=== PATIENT | female | born 1965 | race Caucasian/White ===

== ENCOUNTER 2025-04-16 08:48 | Day surgery (SDC) | payer OTHER, SELFPAY ==
[2025-04-14 16:20] VITALS: BMI 30.9
[2025-04-16 10:16] VITALS: BP 124/76; PULSE 71; RESP 16; O2SAT 100
[2025-04-16] MEDS: LACTATED RINGERS 1000ML 1,000 ML 50 ML IV (10:30)
--- NOTE | 2025-04-16 10:35 | EXP.HP ---
History of Present Illness *Admission Date: 04/16/25 *Reason for visit:: History of eosinophilic esophagitis with recurrent dysphagia, reflux and th *History of present illness: Mrs. Thomas is a 59-year-old female who is here for diagnostic/therapeutic upper endoscopy secondary to dysphagia, history of EOE, reflux, chronic cough and throat clearing. The examination is deemed medically necessary for EGD/upper endoscopy. The patient has been seen, interviewed and examined prior to the procedure by both myself and the anesthesia provider. [facility] Disclaimer: The information contained in this section may have been updated after the patient was seen, as this information can be updated by other users. Medical History Narrowing of airway Hiatal hernia Rotator cuff arthropathy of right shoulder Endometriosis Eosinophilic asthma Depression Anxiety Hyponatremia Brain injury Primary adrenal insufficiency Surgical History H/O laparoscopy Hx of breast augmentation H/O umbilical hernia repair History of appendectomy Family History Other Cancer, bladder, neck Emphysema/COPD Hypertension Melanoma PAD (peripheral artery disease) Social History Smoking Status: Never smoker alcohol intake: current alcohol intake frequency: a few times a month current occupational status: disabled Travel in the last 8 weeks?: None caffeine: Yes Have you lived/traveled outside [place] in past 30 days?: No Contact w/someone who lives/traveled outside US past 30 days?: No Exposure to someone with infectious disease in past 14 days?: No Do you have a fever (greater than 100.4 F or 38 C)?: No Have you tested positive for COVID-19?: No Exposed to someone with COVID-19 in past 14 days?: No Do you have a sore throat?: No Do you have a cough?: No Do you have any weakness?: No Are you experiencing any nausea/vomitting?: No Do you have any diarrhea?: No Are you experiencing any unusual bleeding?: No Do you have any muscle aches/pain?: No Do you have any abdominal pain?: No Are you experiencing loss of taste or smell?: No Review of Systems Review of Systems Review of systems (narrative): Negative *Cardiovascular Comments: Negative *Gastrointestinal Comments: Negative *Genitourinary Comments: Negative *Musculoskeletal Comments: Negative *Neurologic Comments: Negative Meds Home Medications and Allergies Home Medications ?Medication ?Instructions ?Recorded ?Confirmed ?Type alprazolam 0.25 mg tablet 0.25 mg PO DAILY 03/25/25 04/16/25 History alprazolam 1 mg tablet 1 mg PO HS 03/25/25 04/16/25 History azelastine 137 mcg (0.1 %) nasal 1 spray intranasal DAILY 03/25/25 04/16/25 History spray bupropion HCl 300 mg 24 hr tablet, 300 mg PO DAILY 03/25/25 04/16/25 History extended release calcium 600 mg (as 1 tab PO DAILY 03/25/25 04/16/25 History carbonate)-vitamin D3 20 mcg (800 unit) tablet (Caltrate with Vitamin D3) cetirizine 10 mg capsule (Zyrtec) 10 mg PO DAILY PRN allergies 03/25/25 04/16/25 History docosahexaenoic acid 200 mg 200 mg PO DAILY 03/25/25 04/16/25 History capsule (Algal [place]-3 DHA) donepezil 5 mg tablet 5 mg PO DAILY 03/25/25 04/16/25 History estradiol 0.01% (0.1 mg/gram) 0.1 applic vaginal DAILY 03/25/25 04/16/25 History vaginal cream estradiol 0.05 mg/24 hr semiweekly 1 patch transdermal .semiweekly 03/25/25 04/16/25 History transdermal patch famotidine 20 mg tablet 20 mg PO DAILY 03/25/25 04/16/25 History fludrocortisone 0.1 mg tablet 0.1 mg PO DAILY 03/25/25 04/16/25 History hydrocortisone 10 mg tablet 80 mg PO DAILY 03/25/25 04/16/25 History ipratropium bromide 42 mcg (0.06 1 spray intranasal DAILY 03/25/25 04/16/25 History %) nasal spray omeprazole 20 mg capsule,delayed 20 mg PO DAILY 03/25/25 04/16/25 History release progesterone micronized 100 mg 200 mg PO HS 03/25/25 04/16/25 History capsule valacyclovir 500 mg tablet 500 mg PO DAILY 03/25/25 04/16/25 History New Prescriptions to Start Prescriptions: Allergies Allergy/AdvReac Type Severity Reaction Status Date / Time diphenhydramine (From Allergy Verified 03/25/25 11:56 Benadryl) NSAIDS (Non-Steroidal Allergy Verified 03/25/25 11:56 Anti-Inflamma Tetracyclines Allergy Verified 03/25/25 11:56 Exam Data for Last 24 hours Vital signs and Labs for Last 24 Hours: Pulse Resp BP Pulse Ox O2 Del Method 71 16 124/76 100 Room Air 04/16/25 10:16 04/16/25 10:16 04/16/25 10:16 04/16/25 10:16 04/16/25 10:16 I & O for Last 24 hours: Intake & Output 04/13/25 04/14/25 04/15/25 04/16/25 23:59 23:59 23:59 23:59 Weight 180 lb *Routine HEENT Exam Head: Present normocephalic Eye: Present EOMI and PERRL ENT: Present mucous membranes moist *Routine Neck Exam Neck: Present supple *Routine Respiratory Exam Respiratory: Present CTA bilaterally *Routine Cardiovascular Exam Cardiovascular: Present RRR *Routine Abdominal Exam Abdominal: Present soft and normoactive bowel sounds; Absent tenderness *Routine Rectal Exam Rectal:: deferred *Routine Genitalia Exam Genitalia:: deferred *Routine Extremities Exam Extremities: Absent cyanosis, clubbing or edema *Routine Skin Exam Skin: Present warm; Absent rash *Routine Neurological Exam Neurological: Present alert and oriented X3 Assessment and Plan *Assessment and plan (1) Eosinophilic esophagitis: Status: Chronic Category: Medical Code(s): K20.0 - Eosinophilic esophagitis (2) Dysphagia: Status: Acute Category: Medical Code(s): R13.10 - Dysphagia, unspecified (3) Acid reflux: Status: Acute Category: Medical Code(s): K21.9 - Gastro-esophageal reflux disease without esophagitis (4) Bloating: Status: Acute Category: Medical Code(s): R14.0 - Abdominal distension (gaseous) (5) Throat clearing: Status: Acute Category: Medical Code(s): R09.89 - Other specified symptoms and signs involving the circulatory and respiratory systems (6) Chronic cough: Status: Acute Category: Medical Code(s): R05.3 - Chronic cough Plan A/P: 1. History of eosinophilic esophagitis now with recurrent dysphagia, reflux, bloating, throat clearing and chronic cough is the preprocedural diagnosis. The patient will be anesthetized/sedated using MAC sedation. The patient has been seen and examined. Cardiac and lung assessment prior to the examination is stable. Proceed with planned EGD.
--- NOTE | 2025-04-16 10:42 | EXP.ANES.CKL ---
[facility] Disclaimer: The information contained in this section may have been updated after the patient was seen, as this information can be updated by other users. Medical History Narrowing of airway Hiatal hernia Rotator cuff arthropathy of right shoulder Endometriosis Eosinophilic asthma Depression Anxiety Hyponatremia Brain injury Primary adrenal insufficiency Surgical History H/O laparoscopy Hx of breast augmentation H/O umbilical hernia repair History of appendectomy Family History Other Cancer, bladder, neck Emphysema/COPD Hypertension Melanoma PAD (peripheral artery disease) Social History Smoking Status: Never smoker alcohol intake: current alcohol intake frequency: a few times a month substance use type: denies use current occupational status: disabled Travel in the last 8 weeks?: None caffeine: Yes [facility] Anesthesia Checklist Patient Identification Patient Identification: Arm Band Structural Data Admitted From: Home Planned Operative Procedure/s: EGD Consent for Planned Operative Procedure(s) Verified: Yes Verified Documents: Surgical Consent and History and Physical NPO Status Verified Time NPO: 00:00 Additional verifications Anesthesia Reactions: No Airway Assessment Mallampati Score:: Class II C-Spine Mobility Assessed: Yes TMJ Mobility Assessed: Yes Dentition: Good Dentition Neurological Assessment Level of Consciousness: Awake, Alert and Appropriate Anesthesia Plan Anesthesia Risk discussed: Yes Anesthesia Plan: Verified ASA Class: III Anesthesia Type: MAC Preoperative Comments Pre-Operative Comments: Pt with [place]'s Disease. She states that after her last colonoscopy at she had an acute exacerbation of hyponatremia with her sodium dropping to 114. She states that she seen her japanese tutor yesterday who recommended a stress dose of steroids prior to her procedure. Will give 100 mg of Solu-Cortef prior to EGD.
--- NOTE | 2025-04-16 10:49 | P.PCN_ITS ---
[facility] Procedure Note Date: 04/16/25 Time: 11:03 Procedure Note:: Upper Endoscopy Procedure Report: Esophagogastroduodenoscopy with cold biopsies and TTS balloon dilation Endoscopost: Shan Tovar II, MD Referring Physician: Glenn Boland MD, [address] [place] [address] Date of Procedure: April 16, 2025 Equipment: Olympus GIF 190 standard upper endoscope Sedation: MAC sedation Indications: Mrs. Thomas is a 59-year-old female who is here for diagnostic/therapeutic upper endoscopy. The patient does have chronic GERD and a history of eosinophilic esophagitis. She also has eosinophilic asthma and does have a lot of food allergies and recurrent anaphylactic reactions. She has been on omeprazole and famotidine. The patient reports having foods that rapidly causes coughing every time she eats and she is constantly clearing her throat. She does have some bloating, fullness and early satiety. The patient does have a history of IBS constipation she has tried and failed laxatives including Colace, Dulcolax, MiraLAX and Benefiber. Her last endoscopy was with Dr. Bharat Galdamez in 2018 or 2018. Her last colonoscopy was with Kanchan Don in March 2023 and was reportedly normal. Procedure: Prior to the procedure, a history and physical exam was performed, and patient's medications and allergies were reviewed. The risks, benefits and alternatives of the sedation and procedure were discussed with the patient. All questions were answered and informed consent was obtained. The patient was brought to the procedure room. Patient identification and proposed procedure were verified by the physician and the nurse. The patient was placed in a left lateral decubitus position and the scope was passed under direct vision. Throughout the procedure, the patient's blood pressure, pulse, and oxygen saturations were monitored continuously. The upper GI endoscopy was accomplished without difficulty. The patient tolerated the procedure well. Findings: The scope was passed directly into the upper esophagus and advanced to the fourth portion of duodenum and proximal jejunum. Cold biopsy was taken times one of the proximal jejunum for disaccharidase assay. The proximal jejunum, post bulbar duodenum, ampulla and duodenal bulb were normal with normal mucosa and conniventes. The scope was withdrawn through a normal duodenal bulb and pylorus into the stomach. There was some mild linear gastropathy of the antrum. The body and fundus of the stomach were normal. Upon retroflexion there was a 2 to 3 cm sliding hiatal hernia. The scope was then withdrawn into the esophagus. There was no Schatzki's ring or reflux esophagitis. There was no corrugation, furrowing, exudate, striation or inlet patch. Cold biopsies were taken from the distal and proximal esophagus to rule out eosinophilic esophagitis. There were strong tertiary contractions and evidence of moderate esophageal dysmotility. The entire esophagus was dilated to 60 Arabic/20 mm with a TTS hydrostatic balloon. There was some resistance at the cricopharyngeus. The remainder of the esophageal mucosa was normal. Impression: 1. Cricopharyngeal spasm status post dilation to 20 mm 2. Nonerosive GERD with moderate esophageal dysmotility and 2 to 3 cm hiatal hernia 3. Mild linear reactive gastropathy of antrum Plan: I will follow-up the biopsies and disaccharidase assay. There was no gross endoscopic findings suggestive of eosinophilic esophagitis and we will check esophageal biopsies before considering Dupixent. The patient did have clinical improvement with Eohilia. We will discuss treatment options today.
[2025-04-16 11:00] VITALS: BP 130/80; PULSE 101; RESP 16; TEMP 36.3; O2SAT 97
[2025-04-16 11:10] VITALS: BP 125/70; PULSE 95; RESP 16; O2SAT 98
[2025-04-16 11:20] VITALS: BP 102/67; PULSE 78; RESP 16; O2SAT 100
[2025-04-16 11:30] VITALS: BP 106/77; PULSE 81; RESP 16; O2SAT 99
[2025-04-16 11:40] VITALS: BP 104/71; PULSE 66; RESP 16; O2SAT 100
[2025-04-21 14:26] LABS: Disclaimer Notes (.); Interpretation Notes (.); Lactase 24.81 (>/= 14.0); Maltase 198 (>/= 110.0); Palatinase 14.45 (>/= 8.5); Reference Notes (.); Sucrase 50.1 (>/= 25.0)
== END 2025-04-16 11:40 | disposition home or self-care (01) ==
PROVIDERS: PCP Internal Medicine Adolescent Medicine; Visit Provider Internal Medicine Gastroenterology
PROC: 0DJ08ZZ Inspection of Upper Intestinal Tract, Via Natural or Artificial Opening Endoscopic (ICD-10-PCS; CPT 43239; principal; 2025-04-16 10:30)
DX: K22.4 Dyskinesia of esophagus (principal); K44.9 Diaphragmatic hernia without obstruction or gangrene; K31.89 Other diseases of stomach and duodenum; K21.9 Gastro-esophageal reflux disease without esophagitis; F41.9 Anxiety disorder, unspecified; F32.A Depression, unspecified; K58.1 Irritable bowel syndrome with constipation; J82.83 Eosinophilic asthma; E27.1 Primary adrenocortical insufficiency; Z79.890 Hormone replacement therapy; Z79.52 Long term (current) use of systemic steroids; Z88.8 Allergy status to other drugs, medicaments and biological substances; Z79.899 Other long term (current) drug therapy; Z88.6 Allergy status to analgesic agent; Z88.1 Allergy status to other antibiotic agents; Z91.018 Allergy to other foods
CPT/HCPCS: 43239; 43249; 82657; C1726; J1720; J2003; J2704; J7120